=== PATIENT | male | born 1990 | race Caucasian/White ===

== ENCOUNTER 2016-08-30 19:56 | Emergency (ER) | payer MEDICAID ==
[2016-08-30] MEDS ORDERED: NS 1,000 ML IV ONE (20:06)
--- NOTE | 2016-08-30 20:11 | EDPHY ---
H & P Time Seen by Provider: 08/30/16 20:00 HPI/ROS: CHIEF COMPLAINT: Seizure HISTORY OF PRESENT ILLNESS: The patient is a 26-year-old man who was drinking beer and smoking marijuana with his friends in their van when he collapsed and had a few convulsions. Friends called paramedics because they were concerned for seizure. The patient does not have any history of seizure disorder. He does admit to several energy drinks today. He was tachycardic when EMS arrived. He denies chest pain or shortness of breath. He did seem slightly confused to them. No bowel or bladder incontinence, no oral injury. The patient does not remember the event. he denies headache or neck pain. He was given 5 of Valium by EMS. REVIEW OF SYSTEMS: Constitutional: denies: chills, fever, recent illness, recent injury EENTM: denies: blurred vision, double vision, nose congestion Respiratory: denies: cough, shortness of breath Cardiac: denies: chest pain, irregular heart rate, lightheadedness, palpitations Gastrointestinal/Abdominal: denies: abdominal pain, diarrhea, nausea, vomiting, blood streaked stools Genitourinary: denies: dysuria, frequency, hematuria, pain Musculoskeletal: denies: joint pain, muscle pain Skin: denies: lesions, rash, jaundice, bruising Neurological: See HPI Hematologic/Lymphatic: denies: blood clots, easy bleeding, easy bruising Immunologic/allergic: denies: HIV/AIDS, transplant EXAM: GENERAL: Well-appearing, well-nourished and in no acute distress. HEAD: Atraumatic, normocephalic. EYES: Pupils equal round and reactive to light, extraocular movements intact, sclera anicteric, conjunctiva are normal. ENT: TMs normal, nares patent, oropharynx clear without exudates. Moist mucous membranes. NECK: Normal range of motion, supple without lymphadenopathy or JVD. LUNGS: Breath sounds clear to auscultation bilaterally and equal. No wheezes rales or rhonchi. HEART: Regular rate and rhythm without murmurs, rubs or gallops. ABDOMEN: Soft, nontender, normoactive bowel sounds. No guarding, no rebound. No masses appreciated. BACK: No CVA tenderness, no spinal tenderness, step-offs or deformities EXTREMITIES: Normal range of motion, no pitting or edema. No clubbing or cyanosis. NEUROLOGICAL: Cranial nerves II through XII grossly intact. Normal speech, normal gait. 5/5 strength, normal movement in all extremities, normal sensation PSYCH: Mildly sleepy, Normal mood, normal affect. SKIN: Warm, dry, normal turgor, no visible rashes or lesions. Source: Patient Exam Limitations: No limitations - Medical/Surgical History Hx Asthma: No Hx Chronic Respiratory Disease: No Hx Diabetes: No Hx Cardiac Disease: No Hx Renal Disease: No Hx Cirrhosis: No Hx Alcoholism: No Hx HIV/AIDS: No - Family History Significant Family History: No pertinent family hx - Social History Smoking Status: Light smoker Alcohol Use: Occasionally Drug Use: Marijuana Constitutional: Initial Vital Signs Temperature (C) 36.9 C 08/30/16 21:16 Heart Rate 121 H 08/30/16 21:16 Respiratory Rate 16 08/30/16 21:16 Blood Pressure 145/79 H 08/30/16 21:16 O2 Sat (%) 94 08/30/16 21:16 O2 Delivery Mode Room Air O2 (L/minute) 2 Allergies/Adverse Reactions: No Known Allergies Allergy (Unverified 08/30/16 20:03) Home Medications: Medication Instructions Recorded NK [No Known Home Meds] 08/30/16 Medical Decision Making - Diagnostics EKG Interpretation: An EKG obtained and was read and documented in trace view. Please see trace view for full reading and report. , sinus tachycardia, no acute ischemic changes Imaging: Results: CT scan of the head was obtained. The results of the study are negative. The study was read by Dr. Roque. I viewed the images myself on the PACS system. ED Course/Re-evaluation: The patient has what sounds more typical of a syncopal convulsion. Especially considering his lack of seizure history and current alcohol ingestion. He denies daily alcohol use or ever having alcohol withdrawal symptoms previously. He is not tremulous or tachycardic currently. 10:[address] and lab work are reassuring. He is asymptomatic currently. Will discharge him at this time. I suspect that this is more of a syncope with convulsion in the setting of marijuana abuse. He does have a slightly decreased bicarbonate. I will also refer her to a neurologist Differential Diagnosis: Partial list of the Differential diagnosis considered include but were not limited to; substance abuse, head injury, seizure, syncope and although unlikely based on the history and physical exam, I also considered arrhythmia, hypovolemia, medication reaction, anxiety. I discussed these differential diagnoses and the plan with the patient as well as the usual and expected course. The patient understands that the diagnosis is provisional and that in medicine we are not always correct and that further workup is often warranted. Usual and customary warnings were given. All of the patient's questions were answered. The patient was instructed to return to the emergency department should the symptoms at all worsen or return, otherwise to followup with the physician as we discussed. - Data Points Laboratory Results: Laboratory Results 08/30/16 20:07 08/30/16 20:07 08/30/16 08/30/16 20:07 20:07 WBC 18.94 10^3/uL H 10^3/uL (3.80-9.50) RBC 5.66 10^6/uL 10^6/uL (4.40-6.38) Hgb 15.8 g/dL g/dL (13.7-17.5) Hct 50.4 % % (40.0-51.0) MCV 89.0 fL fL (81.5-99.8) MCH 27.9 pg pg (27.9-34.1) MCHC 31.3 g/dL L g/dL (32.4-36.7) RDW 14.0 % % (11.5-15.2) Plt Count 498 10^3/uL H 10^3/uL (150-400) MPV 9.1 fL fL (8.7-11.7) Neut % (Auto) Not Reported Lymph % (Auto) Not Reported [place] % (Auto) Not Reported Eos % (Auto) Not Reported Baso % (Auto) Not Reported Nucleat RBC Rel Count 0.0 % % (0.0-0.2) Absolute Neuts (auto) Not Reported Absolute Lymphs (auto) Not Reported Absolute Monos (auto) Not Reported Absolute Eos (auto) Not Reported Absolute Basos (auto) Not Reported Absolute Nucleated RBC 0.00 10^3/uL 10^3/uL (0-0.01) Immature Gran % Not Reported Seg Neutrophils % 41 % % Band Neutrophils % 11 % % Lymphocytes % 35 % % Monocytes % 10 % % Eosinophils % 3 % % Immature Gran # Not Reported Absolute Seg Neuts 7.77 10^/uL H 10^/uL (1.70-6.50) Absolute Band Neuts 2.08 10^3/uL H 10^3/uL (0.00-0.70) Absolute Lymphocytes 6.63 10^3/uL H 10^3/uL (1.00-3.00) Absolute Monocytes 1.89 10^3/uL H 10^3/uL (0.30-0.80) Absolute Eosinophils 0.57 10^3/uL H 10^3/uL (0.03-0.40) RBC/WBC/PLT Morphology NORMAL (NORMAL) Platelet Estimate INCREASED H (ADEQ) Smear Review By Pending Sodium 143 mEq/L mEq/L (134-144) Potassium 4.0 mEq/L mEq/L (3.5-5.2) Chloride 101 mEq/L mEq/L (97-110) Carbon Dioxide 18 mEq/l L mEq/l (22-31) Anion Gap 24 mEq/L H mEq/L (8-16) BUN 12 mg/dL mg/dL (7-23) Creatinine 1.1 mg/dL mg/dL (0.7-1.3) Estimated GFR > 60 Glucose 112 mg/dL H mg/dL (70-100) Calcium 10.3 mg/dL mg/dL (8.5-10.4) Medications Given: Discontinued Medications Sodium Chloride (Ns) 1,000 mls @ 0 mls/hr IV ONCE ONE PRN Reason: Wide Open Stop: 08/30/16 20:07 Last Admin: 08/30/16 20:17 Dose: 1,000 mls Departure - Departure Disposition: Home, Routine, Self-Care Clinical Impression: Marijuana abuse Condition: Fair Instructions: Cannabis Abuse (ED) Referrals: Selene Guy MD [Medical Doctor] - As per Instructions Crow Gomez DO [Medical Doctor] - As per Instructions
[2016-08-30 20:16] LABS: ADD DIFF? YES; ADD MORPH? NO; ADD SCAN? NO; ATYPICAL LYMPHOCYTE FLAG 30 (0-99); FRAGMENT RBC FLAG 0 (0-99); HEMATOCRIT 50.4 % (40.0-51.0); HEMOGLOBIN 15.8 g/dL (13.7-17.5); LEFT SHIFT FLG 20 (0-99); LIPEMIA HEMOLYSIS FLAG 80 (0-99); MEAN CELL HEMOGLOBIN 27.9 pg (27.9-34.1); MEAN CELL HEMOGLOBIN CONCENTR. 31.3 g/dL (32.4-36.7); MEAN PLATELET VOLUME 9.1 fL (8.7-11.7); PLATELET CLUMPS FLAG 0 (0-99); PLATELET COUNT 498 10^3/uL (150-400); RED BLOOD CELL COUNT 5.66 10^6/uL (4.40-6.38)
[2016-08-30 20:33] LABS: ANION GAP 24 mEq/L (8-16); CALCIUM 10.3 mg/dL (8.5-10.4); CARBON DIOXIDE 18 mEq/l (22-31); CHLORIDE 101 mEq/L (97-110); CREATININE 1.1 mg/dL (0.7-1.3); GLOMERULAR FILTRATION RATE > 60; GLUCOSE 112 mg/dL (70-100); SODIUM 143 mEq/L (134-144)
[2016-08-30 20:40] LABS: PLATELET ESTIMATE INCREASED (ADEQ)
[2016-08-30 21:18] VITALS: RESP 16
[2016-08-30 22:23] VITALS: BP 143/86; PULSE 105; TEMP 97.9; O2SAT 95
--- NOTE | 2016-08-31 09:24 | CPEKG ---
Heart Rate: 108 RR Interval: 556 P-R Interval: 164 QRSD Interval: 86 QT Interval: 320 QTC Interval: 429 P [place]: 51 QRS [place]: 86 T Wave [place]: 8 EKG Severity - OTHERWISE NORMAL ECG - EKG Impression: SINUS TACHYCARDIA Electronically Signed By: Brandon Dao 30-Aug-2016 20:25:50
== END 2016-08-30 22:19 | disposition home or self-care (01) ==
DX: F12.10 Cannabis abuse, uncomplicated (principal); F17.200 Nicotine dependence, unspecified, uncomplicated